=== PATIENT | male | born 1980 | race American Indian/Alaskan Native ===

== ENCOUNTER 2020-11-05 09:35 | Emergency (ER) | payer OTHER ==
[2020-11-05] MEDS ORDERED: Bacitracin Oint 1 GM U/D Packet TOP ONE (10:01)
[2020-11-05] MEDS ORDERED: Lidocaine 1% 30 ML SDV INJECT ONE (10:01)
[2020-11-05] MEDS ORDERED: Diphtheria,Pertussis(Acell),Tetanus Vaccine 0.5 ML Syringe IM ONE (10:02)
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
[2020-11-05 11:19] LABS: ANION GAP 14.9 mEq/L (7-13); CHLORIDE,CL 105 mmol/L (98-107); SODIUM,NA 141 mmol/L (136-145)
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
[2020-11-05] MEDS ORDERED: Acetaminophen 325 MG Tab PO ONE (11:32)
[2020-11-05] MEDS ORDERED: Ketorolac 10 MG Tab PO ONE (11:32)
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
== END 2020-11-05 11:58 | disposition home or self-care (01) ==
LOC: DL.ED 09:35
DX: S02.2XXA Fracture of nasal bones, initial encounter for closed fracture (principal); S06.0X1A Concussion with loss of consciousness of 30 minutes or less, initial encounter; S61.213A Laceration without foreign body of left middle finger without damage to nail, initial encounter; S60.411A Abrasion of left index finger, initial encounter; S60.415A Abrasion of left ring finger, initial encounter; S60.417A Abrasion of left little finger, initial encounter; Z88.5 Allergy status to narcotic agent; Z23 Encounter for immunization; V18.4XXA Pedal cycle driver injured in noncollision transport accident in traffic accident, initial encounter
CPT/HCPCS: 12002; 36415; 70450; 70486; 72125; 73100-LT; 73120-LT; 80053; 80307; 85025; 85610; 90471; 90715; 99284; 99285-25; A9270-GY

== ENCOUNTER 2021-02-12 17:04 | Emergency (ER) | payer OTHER ==
--- NOTE | 2021-02-12 16:47 | EDM.PDOC ---
ED HPI GENERAL MEDICAL PROBLEM - General Chief Complaint: Abdominal Pain Stated Complaint: AMBULANCE Time Seen by Provider: 02/12/21 16:46 Source of Information: Reports: Patient, RN, RN Notes Reviewed History Limitations: Reports: No Limitations - History of Present Illness INITIAL COMMENTS - FREE TEXT/NARRATIVE: Ricky is a 40 y/o male who presents to the ED via [facility] at the request of his provider, Dr. Suazo, for complaints of epigastric pain, nausea, and vomiting. Per report, the patient was examined at [facility] ED yesterday and was subsequently diagnosed with hypokalemia, dehydration, and gastritis. After receiving fluid boluses, K replacement, and a GI cocktail, the patient was discharged home with prescriptions for Zofran ODT and omeprazole. The patient states he was unable to obtain the prescriptions as they were sent to the [facility] and he utilizes the [facility]. Dr. Hernandez is concerned his pain is not improved, although admittedly has not performed and repeat labs or imaging. The patient states his pain was improved with he discharged from [facility] and cannot remember when it returned. He characterizes the pain as a burning wh ich originates in his bilateral upper abdomen. He denies fever, shortness of breath, palpitations, hematemesis, hematochezia, or melena. Abdomen Pain Score (Numeric/FACES): 10 - Related Data Allergies Allergy/AdvReac Type Severity Reaction Status Date / Time morphine Allergy Abdominal Verified 11/05/20 10:35 Cramps Past Medical History - Past Health History Medical/Surgical History: Denies Medical/Surgical History Gastrointestinal History: Reports: GERD Social & Family History - Tobacco Use Tobacco Use Status *Q: Current Every Day Tobacco User Years of Tobacco use: 30 Packs/Tins Daily: 1 - Caffeine Use Caffeine Use: Reports: Coffee, Energy Drinks, Soda - Recreational Drug Use Recreational Drug Use: Yes Recreational Drug Type: Reports: Marijuana/Hashish ED ROS GENERAL - Review of Systems Review Of Systems: Comprehensive ROS is negative, except as noted in HPI. ED EXAM, GI/ABD - Physical Exam Exam: See Below Exam Limited By: No Limitations General Appearance: Alert, Mild Distress (Upper abdominal pain) Eyes: Bilateral: Normal Appearance, EOMI Ears: Normal External Exam, Hearing Grossly Normal Nose: Normal Inspection, Normal Mucosa, No Blood Throat/Mouth: Normal Inspection, Normal Oropharynx, Normal Voice, No Airway Compromise Head: Atraumatic, Normocephalic Neck: Normal Inspection, Supple, Non-Tender, Full Range of Motion. No: Lymphadenopathy (L), Lymphadenopathy (R) Respiratory/Chest: No Respiratory Distress, Lungs Clear, Normal Breath Sounds, No Accessory Muscle Use, Chest Non-Tender Cardiovascular: Normal Peripheral Pulses, Regular Rate, Rhythm, No Edema, No Gallop, No JVD, No Murmur, No Rub GI/Abdominal Exam: Normal Bowel Sounds, Soft, No Distention, No Abnormal Bruit, No Mass, Pelvis Stable, Guarding, Tender (Diffuse to palpation). No: Rigid, Rebound (Male) Exam: Deferred Rectal (Males) Exam: Deferred Back Exam: Normal Inspection, Full Range of Motion. No: CVA Tenderness (L), CVA Tenderness (R) Extremities: Normal Inspection, Normal Range of Motion, Normal Capillary Refill Neurological: Alert, Oriented, CN II-XII Intact, Normal Cognition, Normal Gait, No Motor/Sensory Deficits Psychiatric: Normal Affect, Normal Mood Skin Exam: Warm, Dry, Intact, Normal Color, No Rash. No: Cyanosis, Jaundice, Mottled, Pallor Lymphatic: No Adenopathy #1 Interpretation EKG Date: 02/12/21 Time: 16:40 Rhythm: NSR Rate (Beats/Min): 77 [place]: Normal P-Wave: Present QRS: Wide (1.1) ST-T: Normal QT: Normal VT/PQ Interval: 0.146 Comparison: NA - No Prior EKG EKG Interpretation Comments: NSR; T-wave inversion V1-V4; No evidence of acute myocardial ischemia Course - Vital Signs Last Recorded V/S: Last Vital Signs Temp 99.1 F 02/12/21 16:30 Pulse 87 02/12/21 16:30 Resp 16 02/12/21 16:30 BP 149/105 H 02/12/21 16:30 Pulse Ox 97 02/12/21 16:30 - Orders/Labs/Meds Labs: Laboratory Tests 02/12/21 02/12/21 02/12/21 Range/Units 16:11 16:11 16:11 WBC (5.0-10.0) 10^3/uL RBC (4.6-6.2) 10^6/uL Hgb (14.0-18.0) g/dL Hct (40.0-54.0) % MCV (80-100) fL MCH (27.0-34.0) pg MCHC (33.0-35.0) g/dL Plt Count (150-450) 10^3/uL Neut % (Auto) (42.2-75.2) % Lymph % (Auto) (20.5-50.1) % Wirt % (Auto) (2-8) % Eos % (Auto) (1.0-3.0) % Baso % (Auto) (0.0-1.0) % Sodium (136-145) mmol/L Potassium (3.5-5.1) mmol/L Chloride (98-107) mmol/L Carbon Dioxide (21-32) mmol/L Anion Gap (7-13) mEq/L BUN (7-18) mg/dL Creatinine (0.70-1.30) mg/dL Est Cr Clr Drug Dosing Estimated GFR (MDRD) BUN/Creatinine Ratio (No establ ref range) Glucose (70-99) mg/dL Lactic Acid (0.4-2.0) mmol/L Calcium (8.5-10.1) mg/dL Magnesium (1.8-2.4) mg/dL Total Bilirubin (0.2-1.0) mg/dL AST (15-37) U/L ALT (16-63) U/L Alkaline Phosphatase (46-116) U/L Troponin I High Sens (<=76) pg/mL C-Reactive Protein (0.0-0.9) mg/dL Total Protein (6.4-8.2) g/dL Albumin (3.4-5.0) g/dL Globulin Albumin/Globulin Ratio Amylase (25-115) U/L Lipase (73-393) U/L Urine Color Yellow (YELLOW) Urine Appearance Clear (CLEAR) Urine pH 8.5 (5.0-9.0) Ur Specific Oliver 1.015 (1.005-1.030) Urine Protein 30 H (NEGATIVE) Urine Glucose (UA) Negative (NEGATIVE) Urine Ketones Negative (NEGATIVE) Urine Occult Blood Negative (NEGATIVE) Urine Nitrite Negative (NEGATIVE) Urine Bilirubin Negative (NEGATIVE) Urine Urobilinogen 1.0 (0.2-1.0) mg/dL Ur Leukocyte Esterase Negative (NEGATIVE) Urine RBC 0-5 (0-5) /HPF Urine WBC 0-5 (0-5/HPF) /HPF Ur Epithelial Cells Rare (NOT SEEN) /HPF Amorphous Sediment Rare (NOT SEEN) /HPF Urine Bacteria Not seen (0-FEW/HPF) /HPF Urine Opiates Screen Positive H (NEGATIVE) Ur Oxycodone Screen Negative (NEGATIVE) Urine Methadone Screen Negative (NEGATIVE) Ur Barbiturates Screen Negative (NEGATIVE) U Tricyclic Antidepress Negative (NEGATIVE) Ur Phencyclidine Scrn Negative (NEGATIVE) Ur Amphetamine Screen Negative (NEGATIVE) U Methamphetamines Scrn Negative (NEGATIVE) Urine MDMA Screen Negative (NEGATIVE) U Benzodiazepines Scrn Negative (NEGATIVE) Urine Cocaine Screen Negative (NEGATIVE) U Marijuana (THC) Screen Positive H (NEGATIVE) Ethyl Alcohol (0) mg/dL SARS-CoV-2 RNA (LUIS) Negative (NEGATIVE) 02/12/21 02/12/21 02/12/21 Range/Units 17:40 17:40 17:40 WBC 10.2 H (5.0-10.0) 10^3/uL RBC 6.45 H (4.6-6.2) 10^6/uL Hgb 19.0 H D (14.0-18.0) g/dL Hct 55.3 H (40.0-54.0) % MCV 85.7 D (80-100) fL MCH 29.5 (27.0-34.0) pg MCHC 34.4 (33.0-35.0) g/dL Plt Count 292 (150-450) 10^3/uL Neut % (Auto) 68.7 (42.2-75.2) % Lymph % (Auto) 21.4 (20.5-50.1) % Wirt % (Auto) 9.2 H (2-8) % Eos % (Auto) 0.4 L (1.0-3.0) % Baso % (Auto) 0.3 (0.0-1.0) % Sodium 136 (136-145) mmol/L Potassium 3.4 L (3.5-5.1) mmol/L Chloride 91 L D (98-107) mmol/L Carbon Dioxide 39 H D (21-32) mmol/L Anion Gap 9.4 (7-13) mEq/L BUN 15 (7-18) mg/dL Creatinine 0.83 (0.70-1.30) mg/dL Est Cr Clr Drug Dosing TNP Estimated GFR (MDRD) > 60 BUN/Creatinine Ratio 18.1 (No establ ref range) Glucose 120 H (70-99) mg/dL Lactic Acid 1.4 (0.4-2.0) mmol/L Calcium 8.9 (8.5-10.1) mg/dL Magnesium 2.2 (1.8-2.4) mg/dL Total Bilirubin 1.1 H (0.2-1.0) mg/dL AST 30 (15-37) U/L ALT 48 (16-63) U/L Alkaline Phosphatase 113 (46-116) U/L Troponin I High Sens 7 (<=76) pg/mL C-Reactive Protein 0.0 (0.0-0.9) mg/dL Total Protein 7.8 (6.4-8.2) g/dL Albumin 3.8 (3.4-5.0) g/dL Globulin 4.0 Albumin/Globulin Ratio 0.9 Amylase 34 (25-115) U/L Lipase 96 (73-393) U/L Urine Color (YELLOW) Urine Appearance (CLEAR) Urine pH (5.0-9.0) Ur Specific Oliver (1.005-1.030) Urine Protein (NEGATIVE) Urine Glucose (UA) (NEGATIVE) Urine Ketones (NEGATIVE) Urine Occult Blood (NEGATIVE) Urine Nitrite (NEGATIVE) Urine Bilirubin (NEGATIVE) Urine Urobilinogen (0.2-1.0) mg/dL Ur Leukocyte Esterase (NEGATIVE) Urine RBC (0-5) /HPF Urine WBC (0-5/HPF) /HPF Ur Epithelial Cells (NOT SEEN) /HPF Amorphous Sediment (NOT SEEN) /HPF Urine Bacteria (0-FEW/HPF) /HPF Urine Opiates Screen (NEGATIVE) Ur Oxycodone Screen (NEGATIVE) Urine Methadone Screen (NEGATIVE) Ur Barbiturates Screen (NEGATIVE) U Tricyclic Antidepress (NEGATIVE) Ur Phencyclidine Scrn (NEGATIVE) Ur Amphetamine Screen (NEGATIVE) U Methamphetamines Scrn (NEGATIVE) Urine MDMA Screen (NEGATIVE) U Benzodiazepines Scrn (NEGATIVE) Urine Cocaine Screen (NEGATIVE) U Marijuana (THC) Screen (NEGATIVE) Ethyl Alcohol < 3 (0) mg/dL SARS-CoV-2 RNA (LUIS) (NEGATIVE) Meds: Medications Discontinued Medications Generic Name Dose Route Start Last Admin Trade Name Gerhard PRN Reason Stop Dose Admin Al Hydroxide/Mg Hydroxide 30 ml 02/12/21 17:40 02/12/21 17:46 Gi Cocktail Oral Solution 30 Ml PO 02/12/21 17:41 30 ml ONETIME ONE Administration Famotidine 20 mg 02/12/21 19:35 Famotidine 20 Mg Tab PO 02/12/21 19:36 ONETIME ONE - Re-Assessments/Exams Free Text/Narrative Re-Assessment/Exam: 02/12/21 GI cocktail administered. COVID sent. Patient verbalized improvement in pain following medication administration. Findings of examination and lab work reviewed with patient. Will treat reflux with omeprazole and Zofran ODT. Discussed supportive cares as well as red flag signs and symptoms which would warrant reevaluation reviewed. Patient and girlfriend verbalized understanding and agreement with the plan of care. Departure - Departure Time of Disposition: 19:35 Disposition: Home, Self-Care 01 Condition: Fair Clinical Impression: Reflux gastritis Nausea & vomiting Qualifiers: Vomiting type: unspecified Vomiting Intractability: non-intractable Qualified Code(s): R11.2 - Nausea with vomiting, unspecified - Discharge Information *PRESCRIPTION DRUG MONITORING PROGRAM REVIEWED*: Not Applicable *COPY OF PRESCRIPTION DRUG MONITORING REPORT IN PATIENT KELLE: Not Applicable Instructions: Abdominal Pain, Adult, Gastritis, Adult, Nausea and Vomiting, Adult Forms: ED Department Discharge Additional Instructions: Rx: Zofran ODT Rx: omeprazole 1.) Small, frequent sips of fluids to stay hydrated. 2.) Whitley diet, as tolerated, including applesauce, toast, cracker, etc... Avoid spicy, greasy, high-fat foods. 3.) You may take TUMs, Maalox, or Pepcid for breakthrough pain while taking omeprazole. 4.) Follow up with your primary care provider in 5-7 days, or return to the emergency department with worsening symptoms.
[2021-02-12 17:05] LABS: AMPHETAMINES,URINE NEGATIVE (NEGATIVE); BARBITURATES,URINE NEGATIVE (NEGATIVE); BENZODIAZEPINE,URINE NEGATIVE (NEGATIVE); MDMA (ECSTASY), URINE NEGATIVE (NEGATIVE); METHADONE,URINE NEGATIVE (NEGATIVE); METHAMPHETAMINES,URINE NEGATIVE (NEGATIVE); OPIATES,URINE POSITIVE (NEGATIVE); OXYCODONE,URINE NEGATIVE (NEGATIVE); PHENCYCLIDINE,URINE NEGATIVE (NEGATIVE); TCA,URINE NEGATIVE (NEGATIVE)
[2021-02-12] MEDS ORDERED: GI Cocktail Oral Solution 30 ML PO ONE (17:40)
[2021-02-12 18:21] LABS: ANION GAP 9.4 mEq/L (7-13); CHLORIDE,CL 91 mmol/L (98-107); SODIUM,NA 136 mmol/L (136-145)
[2021-02-12] MEDS ORDERED: Famotidine 20 MG Tab PO ONE (19:35)
== END 2021-02-12 19:50 | disposition home or self-care (01) ==
LOC: DL.ED 17:04
DX: K29.70 Gastritis, unspecified, without bleeding (principal); K21.9 Gastro-esophageal reflux disease without esophagitis; R11.2 Nausea with vomiting, unspecified; Z88.5 Allergy status to narcotic agent; Z72.0 Tobacco use; Z20.822 Contact with and (suspected) exposure to COVID-19
CPT/HCPCS: 36415; 80053; 80305-QW; 80307; 81001; 82150; 83605; 83690; 83735; 84484; 85025; 86140; 93005; 99283; 99284-25; A9270-GY; U0002

== ENCOUNTER 2021-10-14 15:03 | Inpatient (IN) | payer MEDICAID, OTHER ==
[2021-10-14] MEDS ORDERED: Ondansetron 4 MG/2 ML SDV IV ONE (16:33)
[2021-10-14] MEDS ORDERED: Pantoprazole 40 MG Vial IVPUSH ONE (16:33)
[2021-10-14] MEDS ORDERED: MVI, Adult with Vitamin K 10 ML, Thiamine 100 MG, Folic Acid 1 MG in Lactated Ringers 1... IV ONE ×4 (16:33)
[2021-10-14] MEDS: Sodium Chloride 0.9% 10 ML Syringe FLUSH PRN ×2 (16:59→17:09)
[2021-10-14 17:19] LABS: ANION GAP 13.1 mEq/L (7-13); CHLORIDE,CL 91 mmol/L (98-107); SODIUM,NA 133 mmol/L (136-145)
[2021-10-14] MEDS ORDERED: LORazepam 2 MG/ML SDV IVPUSH ONE (18:08)
[2021-10-14 18:13] LABS: CORONAVIRUS COVID-19 NAA NEGATIVE (NEGATIVE); RESPIRATORY SYNCYTIAL VIR NAA NEGATIVE (NEGATIVE)
[2021-10-14] MEDS: NS with KCl 40mEq 1,000 ML IV SCH (19:01)
[2021-10-14] MEDS ORDERED: Magnesium Hydroxide 400 MG/5 ML Susp 30 ML Cup PO PRN (19:50)
[2021-10-14] MEDS ORDERED: Docusate Sodium 100 MG Cap PO PRN (19:50)
[2021-10-14] MEDS ORDERED: Bisacodyl 5 MG Tab PO PRN (19:50)
[2021-10-14] MEDS ORDERED: Promethazine 25 MG Tab PO PRN (19:50)
[2021-10-14] MEDS ORDERED: Haloperidol Lactate 5 MG/ML SDV IM PRN (19:50)
[2021-10-14] MEDS ORDERED: Polyethylene Glycol 3350 Powder 17 GM Packet PO PRN (19:50)
[2021-10-14] MEDS ORDERED: Ibuprofen 600 MG Tab PO PRN (19:50)
[2021-10-14] MEDS ORDERED: Albuterol/Ipratropium 3.0-0.5 MG/3 ML Neb Soln NEB PRN (19:50)
[2021-10-14] MEDS ORDERED: QUEtiapine 100 MG Tab PO ONE (20:17)
[2021-10-14] MEDS ORDERED: LORazepam 2 MG/ML SDV IVPUSH PRN ×2 (20:17)
[2021-10-14] MEDS ORDERED: diphenhydrAMINE 50 MG/ML SDV IVPUSH ONE (20:17)
[2021-10-14] MEDS ORDERED: chlordiazePOXIDE 25 MG Cap PO ONE ×2 (20:17→20:25)
[2021-10-14] MEDS ORDERED: GI Cocktail Oral Solution 30 ML PO ONE (20:34)
[2021-10-14] MEDS: Nicotine 21 MG/24 Hr Patch TRDERM SCH (20:59)
[2021-10-14] MEDS ORDERED: Midazolam 5 MG/ML 10 ML MDV IV ONE (23:30)
[2021-10-14] MEDS ORDERED: Midazolam 1 MG/ML 2 ML SDV IV ONE (23:45)
[2021-10-15] MEDS: NS with KCl 40mEq 1,000 ML IV SCH ×5 (00:12→20:42)
[2021-10-15 06:37] LABS: ANION GAP 10.9 mEq/L (7-13); CHLORIDE,CL 103 mmol/L (98-107); SODIUM,NA 141 mmol/L (136-145)
[2021-10-15] MEDS: Pantoprazole 40 MG Vial IVPUSH SCH ×3 (08:24→20:43)
[2021-10-15] MEDS: Nicotine 21 MG/24 Hr Patch TRDERM SCH (08:24)
[2021-10-15] MEDS: Multivitamin Tab PO SCH ×2 (08:25→12:36)
[2021-10-15] MEDS: Folic Acid 1 MG Tab PO SCH ×2 (08:25→12:35)
[2021-10-15] MEDS: Thiamine 100 MG Tab PO SCH ×2 (08:25→12:36)
[2021-10-15 10:00] LABS: AMPHETAMINES,URINE NEGATIVE (NEGATIVE); BARBITURATES,URINE NEGATIVE (NEGATIVE); BENZODIAZEPINE,URINE POSITIVE (NEGATIVE); MDMA (ECSTASY), URINE NEGATIVE (NEGATIVE); METHADONE,URINE NEGATIVE (NEGATIVE); METHAMPHETAMINES,URINE NEGATIVE (NEGATIVE); OPIATES,URINE NEGATIVE (NEGATIVE); OXYCODONE,URINE NEGATIVE (NEGATIVE); PHENCYCLIDINE,URINE NEGATIVE (NEGATIVE); TCA,URINE NEGATIVE (NEGATIVE)
[2021-10-15] MEDS: Ketorolac 30 MG/ML SDV IVPUSH PRN (19:35)
[2021-10-15] MEDS: GI Cocktail Oral Solution 30 ML PO PRN (19:39)
[2021-10-15] MEDS: Ondansetron 4 MG/2 ML SDV IVPUSH PRN (22:17)
[2021-10-16] MEDS: NS with KCl 40mEq 1,000 ML IV SCH ×2 (01:51→06:50)
[2021-10-16 06:45] LABS: ANION GAP 12.4 mEq/L (7-13); CHLORIDE,CL 103 mmol/L (98-107); SODIUM,NA 137 mmol/L (136-145)
[2021-10-16] MEDS: Pantoprazole 40 MG Vial IVPUSH SCH ×2 (08:26→21:27)
[2021-10-16] MEDS: Nicotine 21 MG/24 Hr Patch TRDERM SCH (08:26)
[2021-10-16] MEDS: GI Cocktail Oral Solution 30 ML PO PRN (08:26)
[2021-10-16] MEDS: Folic Acid 1 MG Tab PO SCH (08:29)
[2021-10-16] MEDS: Multivitamin Tab PO SCH (08:29)
[2021-10-16] MEDS: Thiamine 100 MG Tab PO SCH (08:30)
[2021-10-16] MEDS: cloNIDine 0.1 MG Tab PO PRN (08:31)
[2021-10-16] MEDS ORDERED: hydrALAZINE 20 MG/ML SDV IVPUSH PRN (09:53)
[2021-10-16] MEDS: Ketorolac 30 MG/ML SDV IVPUSH PRN (13:09)
[2021-10-16] MEDS: Ondansetron 4 MG/2 ML SDV IVPUSH PRN (13:09)
[2021-10-16] MEDS: Check NICOTINE Patch TRDERM SCH (22:17)
[2021-10-17] MEDS ORDERED: chlordiazePOXIDE 25 MG Cap PO PRN (00:46)
[2021-10-17 08:04] LABS: ANION GAP 9.9 mEq/L (7-13); CHLORIDE,CL 105 mmol/L (98-107); SODIUM,NA 139 mmol/L (136-145)
[2021-10-17] MEDS: Pantoprazole 40 MG Vial IVPUSH SCH ×2 (08:32→20:40)
[2021-10-17] MEDS: Nicotine 21 MG/24 Hr Patch TRDERM SCH (08:32)
[2021-10-17] MEDS: Thiamine 100 MG Tab PO SCH (09:47)
[2021-10-17] MEDS: Multivitamin Tab PO SCH (09:47)
[2021-10-17] MEDS: Folic Acid 1 MG Tab PO SCH (09:47)
[2021-10-17] MEDS: Ondansetron 4 MG/2 ML SDV IVPUSH PRN (09:55)
[2021-10-17] MEDS: chlordiazePOXIDE 25 MG Cap PO SCH ×3 (09:58→17:35)
[2021-10-17] MEDS ORDERED: Sodium Chloride 0.9% 500 ML IV SCH (20:15)
[2021-10-17] MEDS ORDERED: Dextrose 5%-0.9% NaCl 1,000 ML IV SCH (20:15)
[2021-10-17] MEDS ORDERED: Lactated Ringers 1,000 ML IV SCH (20:45)
[2021-10-17] MEDS: GI Cocktail Oral Solution 30 ML PO PRN (20:53)
[2021-10-17] MEDS ORDERED: Flumazenil 0.1 MG/ML 5 ML MDV IVPUSH ONE (23:40)
[2021-10-17] MEDS ORDERED: Flumazenil 0.1 MG/ML 5 ML MDV ONE (23:42)
[2021-10-17] MEDS ORDERED: Haloperidol Lactate 5 MG/ML SDV IM PRN (23:48)
[2021-10-18] MEDS ORDERED: Haloperidol Lactate 5 MG/ML SDV IVPUSH PRN (00:03)
[2021-10-18] MEDS: Check NICOTINE Patch TRDERM SCH ×2 (00:05→22:37)
[2021-10-18] MEDS: chlordiazePOXIDE 25 MG Cap PO SCH ×3 (00:18→13:40)
[2021-10-18] MEDS: Ondansetron 4 MG/2 ML SDV IVPUSH PRN ×2 (06:42→15:09)
[2021-10-18 07:33] LABS: ANION GAP 11.5 mEq/L (7-13); CHLORIDE,CL 107 mmol/L (98-107); SODIUM,NA 143 mmol/L (136-145)
[2021-10-18] MEDS: Pantoprazole 40 MG Vial IVPUSH SCH ×2 (08:47→20:45)
[2021-10-18] MEDS: Nicotine 21 MG/24 Hr Patch TRDERM SCH (08:49)
[2021-10-18] MEDS: Multivitamin Tab PO SCH (08:50)
[2021-10-18] MEDS: Thiamine 100 MG Tab PO SCH (08:50)
[2021-10-18] MEDS: Dextrose 5%-0.9% NaCl 1,000 ML IV SCH ×2 (09:56→19:43)
[2021-10-18] MEDS ORDERED: chlordiazePOXIDE 25 MG Cap PO PRN (14:08)
[2021-10-18] MEDS: GI Cocktail Oral Solution 30 ML PO PRN (15:10)
[2021-10-18] MEDS: cloNIDine 0.1 MG Tab PO PRN (20:15)
[2021-10-19] MEDS: cloNIDine 0.1 MG Tab PO PRN (08:30)
[2021-10-19] MEDS: Thiamine 100 MG Tab PO SCH (08:30)
[2021-10-19] MEDS: Multivitamin Tab PO SCH (08:30)
[2021-10-19] MEDS: Pantoprazole 40 MG Vial IVPUSH SCH (08:33)
[2021-10-19] MEDS: Nicotine 21 MG/24 Hr Patch TRDERM SCH (08:51)
[2021-10-19] MEDS: Pantoprazole 40 MG Tab.CR PO SCH (17:04)
[2021-10-19] MEDS: Dextrose 5%-0.9% NaCl 1,000 ML IV SCH (17:45)
[2021-10-19] MEDS: Check NICOTINE Patch TRDERM SCH (21:06)
[2021-10-20] MEDS: Pantoprazole 40 MG Tab.CR PO SCH (06:35)
[2021-10-20] MEDS: Multivitamin Tab PO SCH (08:20)
[2021-10-20] MEDS: Thiamine 100 MG Tab PO SCH (08:21)
[2021-10-20] MEDS: Nicotine 21 MG/24 Hr Patch TRDERM SCH (08:22)
== END 2021-10-20 09:40 | disposition home or self-care (01) | DRG 897 ==
LOC: DL.ED 15:03 → DL.MS 19:01
PROVIDERS: ADMIT Internal Medicine; ATTEND Internal Medicine
DX: F10.239 Alcohol dependence with withdrawal, unspecified (principal); E87.1 Hypo-osmolality and hyponatremia; K21.9 Gastro-esophageal reflux disease without esophagitis; I10 Essential (primary) hypertension; F41.9 Anxiety disorder, unspecified; F17.200 Nicotine dependence, unspecified, uncomplicated; E87.6 Hypokalemia; R73.9 Hyperglycemia, unspecified; R44.1 Visual hallucinations; Z20.822 Contact with and (suspected) exposure to COVID-19; K29.20 Alcoholic gastritis without bleeding; F45.9 Somatoform disorder, unspecified; Z88.5 Allergy status to narcotic agent
CPT/HCPCS: 0241U; 36415; 51702; 71045; 80053; 80305-QW; 80307; 81001; 82150; 82947; 83605; 83690; 83735; 84484; 85025; 85610; 85730; 93005; 93010; 96365; 96375; 97161-GP; 97165-GO; 99284; 99284-25; A9270-GY; C9113; J0360; J1200; J1630; J1885; J2060; J2250; J2405; J3411; J3480; J3490; J7042; J7120

== ENCOUNTER 2021-12-30 11:44 | Emergency (ER) | payer MEDICAID, OTHER ==
[2021-12-30] MEDS ORDERED: hydrOXYzine HCl 25 MG Tab PO ONE ×2 (11:45→12:48)
[2021-12-30] MEDS ORDERED: Ondansetron 4 MG Tab.DIS PO ONE (11:45)
[2021-12-30] MEDS ORDERED: LORazepam 1 MG Tab PO ONE (11:45)
[2021-12-30] MEDS ORDERED: Sodium Chloride 0.9% 1,000 ML IV ONE ×2 (11:57→12:39)
[2021-12-30] MEDS ORDERED: Ondansetron 4 MG/2 ML SDV IVPUSH ONE ×3 (11:57→14:35)
[2021-12-30] MEDS ORDERED: GI Cocktail Oral Solution 30 ML PO ONE (12:22)
[2021-12-30 12:46] LABS: ANION GAP 15.2 mEq/L (7-13)
[2021-12-30] MEDS ORDERED: LORazepam 2 MG/ML SDV IVPUSH ONE (12:49)
[2021-12-30] MEDS ORDERED: hydrOXYzine HCl 25 MG Tab ONE (14:29)
[2021-12-30] MEDS ORDERED: LORazepam 1 MG Tab ONE (14:29)
[2021-12-30] MEDS ORDERED: Ondansetron 4 MG Tab.DIS ONE (14:29)
== END 2021-12-30 14:46 | disposition home or self-care (01) ==
LOC: DL.ED 11:44
DX: F10.10 Alcohol abuse, uncomplicated (principal); I10 Essential (primary) hypertension; Z88.5 Allergy status to narcotic agent; Y90.3 Blood alcohol level of 60-79 mg/100 ml
CPT/HCPCS: 36415; 80053; 80307; 82272; 83735; 84484; 85025; 93005; 96361; 96374; 96375; 96376; 99284; A9270; J2060; J2405; J7030

== ENCOUNTER 2022-03-27 04:16 | Emergency (ER) | payer MEDICAID ==
[~2022-03-27 04:16] MED LIST: Ketorolac 30 MG/ML SDV IM ONE; Lidocaine/EPINEPHrine/Tetracaine Soln 5 ML Each TOP ONE; Sulfamethoxazole/Trimethoprim 800-160 MG Tab PO ONE
[2022-03-27] MEDS ORDERED: MVI IV ONE ×4 (17:00)
[2022-03-27] MEDS ORDERED: [UNRECOGNIZED DRUG - OTHER] IV ONE ×4 (17:00)
[2022-03-27] MEDS ORDERED: VITAMIN K IV ONE ×4 (17:00)
[2022-03-27] MEDS ORDERED: LORazepam 2 MG/ML SDV IV ONE (17:00)
[2022-03-27] MEDS ORDERED: THIAMINE IV ONE ×4 (17:00)
[2022-03-27] MEDS ORDERED: FOLIC ACID IV ONE ×4 (17:00)
[2022-03-27] MEDS ORDERED: Magnesium Sulfate/Water 2 GM/50 ML Premix Bag IV ONE (17:30)
[2022-03-27] MEDS ORDERED: Ondansetron 4 MG Tab.DIS PO ONE (18:50)
[2022-03-27] MEDS ORDERED: LORazepam 1 MG Tab PO ONE (18:50)
[2022-04-20 12:23] LABS: CHLORIDE,CL 98 mmol/L (98-107); ESTIMATED GFR 122 mL/min (>=60); SODIUM,NA 136 mmol/L (136-145)
[2022-04-20 12:24] LABS: PTT,PARTIAL THROMBOPLSTIN TIME 24.1 SEC (22.0-34.0)
== END 2022-03-27 18:59 | disposition other institution (70) ==
LOC: DL.ED 04:16
DX: F10.239 Alcohol dependence with withdrawal, unspecified (principal)
CPT/HCPCS: 36415; 80053; 80307; 82150; 83690; 83735; 84484; 85025; 85610; 85730; 93005; 96365; 96368; 96375; 99284-25; A9270-GY; J1885; J2060; J3411; J3475; J3490; J7120

== ENCOUNTER 2022-03-30 05:03 | Emergency (ER) | payer MEDICAID ==
[2022-03-30] MEDS ORDERED: Sodium Chloride 0.9% 1,000 ML IV ONE (05:45)
[2022-03-30] MEDS ORDERED: Ondansetron 4 MG/2 ML SDV IVPUSH ONE (05:45)
[2022-03-30] MEDS ORDERED: Pantoprazole 40 MG Vial IV ONE (05:45)
[2022-04-23 13:56] LABS: SODIUM,NA 137 mmol/L (136-145)
[2022-04-23 13:57] LABS: ANION GAP 11.9 mEq/L (7-13); CHLORIDE,CL 101 mmol/L (98-107); ESTIMATED GFR 116 mL/min (>=60)
== END 2022-03-30 06:30 | disposition other institution (70) ==
LOC: DL.ED 05:03
DX: K52.9 Noninfective gastroenteritis and colitis, unspecified (principal)
CPT/HCPCS: 36415; 80053; 80307; 82140; 82150; 83690; 85025; 96361; 96374; 96375; 99283-25

== ENCOUNTER 2022-04-07 12:42 | Emergency (ER) | payer MEDICAID, OTHER ==
[2022-04-07] MEDS ORDERED: Ondansetron 4 MG Tab.DIS PO ONE (12:43)
[2022-04-07] MEDS ORDERED: LORazepam 1 MG Tab PO ONE (12:43)
[2022-04-07] MEDS ORDERED: Famotidine 20 MG/2 ML SDV IVPUSH ONE (13:28)
[2022-04-07] MEDS ORDERED: Ondansetron 4 MG/2 ML SDV IVPUSH ONE (13:28)
[2022-04-07] MEDS ORDERED: MVI, Adult with Vitamin K 10 ML, Thiamine 100 MG, Folic Acid 1 MG in Lactated Ringers 1... IV ONE ×4 (13:28)
[2022-04-07 13:37] LABS: ANION GAP 16.8 mEq/L (7-13)
[2022-04-07] MEDS ORDERED: GI Cocktail Oral Solution 30 ML PO ONE (14:39)
[2022-04-07 15:57] LABS: AMPHETAMINES,URINE NEGATIVE (NEGATIVE); BARBITURATES,URINE NEGATIVE (NEGATIVE); BENZODIAZEPINE,URINE NEGATIVE (NEGATIVE); MDMA (ECSTASY), URINE NEGATIVE (NEGATIVE); METHADONE,URINE NEGATIVE (NEGATIVE); METHAMPHETAMINES,URINE NEGATIVE (NEGATIVE); OPIATES,URINE NEGATIVE (NEGATIVE); OXYCODONE,URINE NEGATIVE (NEGATIVE); PHENCYCLIDINE,URINE NEGATIVE (NEGATIVE); TCA,URINE NEGATIVE (NEGATIVE)
[2022-04-07] MEDS ORDERED: Ondansetron 4 MG Tab.DIS ONE (16:19)
[2022-04-07] MEDS ORDERED: LORazepam 1 MG Tab ONE (16:19)
== END 2022-04-07 16:25 | disposition other institution (70) ==
LOC: DL.ED 12:42
DX: K21.9 Gastro-esophageal reflux disease without esophagitis (principal); F10.239 Alcohol dependence with withdrawal, unspecified; I10 Essential (primary) hypertension; Z72.0 Tobacco use; Z88.5 Allergy status to narcotic agent; Z79.899 Other long term (current) drug therapy; Y90.6 Blood alcohol level of 120-199 mg/100 ml
CPT/HCPCS: 36415; 80053; 80305; 80307; 81001; 82150; 83605; 83690; 83735; 85025; 96365; 96375; 99284; A9270; J2405; J3411; J3490; J7120

== ENCOUNTER 2022-07-05 12:17 | Emergency (ER) | payer OTHER, MEDICAID | END 2022-07-05 13:34 | disposition home or self-care (01) | LOC: DL.ED 12:17 | DX: Z02.89 Encounter for other administrative examinations (principal); I10 Essential (primary) hypertension; K21.9 Gastro-esophageal reflux disease without esophagitis; Z88.5 Allergy status to narcotic agent; Z79.899 Other long term (current) drug therapy | CPT/HCPCS: 99282 ==

== ENCOUNTER 2024-06-09 12:42 | Emergency (ER) | payer MEDICAID | END 2024-06-09 14:04 | disposition home or self-care (01) | LOC: DL.ED 12:42 | DX: S59.902A Unspecified injury of left elbow, initial encounter (principal); I10 Essential (primary) hypertension; K21.9 Gastro-esophageal reflux disease without esophagitis; Z88.5 Allergy status to narcotic agent; Z79.899 Other long term (current) drug therapy; V86.95XA Unspecified occupant of 3- or 4- wheeled all-terrain vehicle (ATV) injured in nontraffic accident, initial encounter | CPT/HCPCS: 73080-LT; 99283 ==